=== PATIENT | female | born 1955 | race African-American/Black ===

== ENCOUNTER 2016-08-22 07:03 | Day surgery (SDC) | payer OTHER ==
[2016-08-16 11:36] VITALS: BMI 25.1
--- NOTE | 2016-08-16 15:37 | HP ---
Admitting History and Physical - Primary Care Physician PCP: Shirley Paige - Admission Chief Complaint: Right breast intraductal papilloma and right breast mass at 7: 00 History of Present Illness: 59 year old postmenapausal female with right nipple clear discharge. US core bx 2012 showed intraductal papilloma right breast retroareolar region. She did not have affordable insurance at the time to excise it. Unilateral US and mammogram 06/2016 showed 2.1 cm mass 6:00. This has increased in size. In addition there is a right breast 7:[address] Monteiro is suggesting biopsy. History Source: Patient Limitations to Obtaining History: No Limitations - Past Medical History Infectious Disease: Yes: Other (Herpes) - Past Surgical History Past Surgical History: Yes: Hysterectomy (EZRA at age 41 fibroid and 2001 USO benign cyst) - Smoking History Smoking history: Never smoked Have you smoked in the past 12 months: No - Alcohol/Substance Use Hx Alcohol Use: Yes (SOCIALLY) Home Medications - Allergies Allergies/Adverse Reactions: Allergies Allergy/AdvReac Type Severity Reaction Status Date / Time No Known Drug Allergies Allergy Verified 08/16/16 11:30 - Home Medications Home Medications: Ambulatory Orders Estradiol 2 mg PO DAILY 08/16/16 Valacyclovir HCl [Valtrex -] 500 mg PO DAILY 08/16/16 Family Disease History - Family Disease History Family Disease History: CA: Father (prostate ca 60) Physical Examination Constitutional: Yes: Well Nourished, No Distress Musculoskeletal: Yes: Other (palpable right retroareolar mass at 6:00 which elicits clear nipple discharge no other palpable masses in either breast , no palpable adenopathy) Problem List - Problems (1) Intraductal papilloma of right breast Code(s): D24.1 - BENIGN NEOPLASM OF RIGHT BREAST (2) Mass of right breast Code(s): N63 - UNSPECIFIED LUMP IN BREAST Assessment/Plan Right breast excisional biopsy of retroareolar mass and right breast 7:00 mass excision with an US needle localization
[2016-08-22] MEDS ORDERED: KETOROLAC TROMETHAMINE 30 MG/1 ML VIAL IVPUSH PRN (11:49)
[2016-08-22] MEDS ORDERED: ONDANSETRON 4 MG/2 ML VIAL IVPB PRN (11:49)
[2016-08-22] MEDS ORDERED: DEXTROSE 5%-0.45% SALINE 1,000 ML IV SCH (12:00)
[2016-08-22] MEDS ORDERED: MIDAZOLAM HCL 2 MG/2 ML SINGLE DOSE VIAL ONE (12:00)
[2016-08-22] MEDS ORDERED: LIDOCAINE HCL 1%, 10 MG/ML (20ML VIAL) ONE (12:01)
[2016-08-22] MEDS ORDERED: BUPIVACAINE HCL 0.25% 125 MG/50 ML VIAL ONE (12:01)
[2016-08-22] MEDS ORDERED: ISOSULFAN BLUE 10 MG/ML VIAL SQ ONE (12:01)
[2016-08-22] MEDS ORDERED: PROPOFOL 20 ML ONE ×2 (12:09)
[2016-08-22] MEDS ORDERED: GUM MASTIC/STORAX/MSAL/ALCOHOL 1 DRP DROPSBTL MC ONE (12:25)
[2016-08-22 14:38] VITALS: TEMP 97.9
[2016-08-22 15:12] VITALS: BP 126/66; PULSE 64
[2016-08-22] MEDS ORDERED: ONDANSETRON 4 MG/2 ML VIAL IVPUSH PRN (15:24)
[2016-08-22] MEDS ORDERED: LACTATED RINGERS SOLUTION 1,000 ML IV SCH (15:30)
--- NOTE | 2016-08-23 15:31 | OP ---
DATE OF OPERATION: 08/22/2016 PREOPERATIVE DIAGNOSIS: Right breast mass. POSTOPERATIVE DIAGNOSIS: Right breast mass. PROCEDURE: Excision of right breast mass x2. SURGEON: Shirley Paige MD WOOD MODEL BUILDER: NICKO Soni ANESTHESIA: MAC. SPECIMEN: Right breast mass. ESTIMATED BLOOD LOSS: Minimal. INDICATIONS FOR PROCEDURE: The patient is a 60-year-old woman who has had right clear nipple discharge since 2012. Biopsy in 2012 showed an intraductal papilloma. Excision was recommended, but the patient was uninsured until recently. Ultrasound in June showed a 2.1-cm subareolar mass at 6 o'clock, which had increased in size compared to previous studies. There was also a small benign-appearing mass, and the plan was to take this out at the same time as the papilloma. The procedure, risks, and complications were discussed with her prior to surgery. DESCRIPTION OF PROCEDURE: The patient was taken to breast imaging where she underwent localization of the right breast mass at 7 o'clock. The mass at 6 o'clock was palpable. She was then taken to ambulatory surgery where informed consent was obtained. The right breast was marked for laterality. She was then taken to the operating room and placed on the operating table in the supine position. She was sedated. Sequential compression devices were placed on both legs. She did not receive antibiotics prior to surgery. Examination of the right breast showed a palpable mass just below the nipple at 6 o'clock. There was also a guidewire exiting from the right lower inner quadrant. The right breast was prepped and draped in the usual fashion. The skin was infiltrated with 1% lidocaine after a time-out was performed. An incision was made at the inferior border of the areola. The tip of the localizing guidewire was identified. Electrocautery was used to mobilize the tissue under the areola until the subareolar mass was identified. The mass was then mobilized and from the surrounding breast tissue. There was some bleeding, which was controlled with electrocautery. The tissue dissection than extended to include the tissue around the tip of the needle where the 7 o'clock mass was located. Once the tissue was completely mobilized, the wire and needle were disassembled, and the wire was brought into the operative field. A small amount of remaining tissue was divided with electrocautery. The specimen was then sent to ultrasound, which showed the 7 o'clock mass was included in the specimen. Specimen was then placed in formalin and sent to Pathology. The wound was irrigated and inspected for hemostasis. Once hemostasis was satisfactory, the incision was closed. The skin was infiltrated with 0.25% Marcaine. The deep tissue was closed with interrupted sutures of 3-0 Vicryl. The dermis was closed with interrupted sutures of 3-0 Vicryl. The skin was closed with a running subcuticular closure of 4-0 Monocryl. The wound was cleaned and dressed with a sterile gauze dressing. The patient tolerated the procedure well. At the end of the procedure, all sponge, lap, and instrument counts were correct. She was taken to the recovery area in satisfactory condition. Jorge [id number]
--- NOTE | 2016-08-26 11:43 | PATH ---
Surgical Pathology Report Patient Name: ERIC BRUNNER [facility]. Rec. #: [id number] /Age/Gender: 1955 (Age: 60) / F Account: [id number] Location: [facility] Taken: 08/22/2016 Received: 08/21/2016 Reported: 08/26/2016 Physicians: Shirley Paige M.D. Specimen(s) Received RIGHT BREAST MASS Clinical History None given Final Diagnosis RIGHT BREAST, WIDE EXCISION: INTRADUCTAL PAPILLOMA WITH ATYPIA, 1.0 CM IN GREATEST DIMENSION MEASURED ON A SLIDE, WITH AREAS OF CYSTIC CHANGE AND AREAS OF APOCRINE METAPLASIA. PAPILLOMA EXTENDS TO SUPERIOR AND LATERAL MARGINS OF EXCISION. REMAINING BREAST TISSUE WITH SCLEROSING ADENOSIS WITH ASSOCIATED CALCIFICATION, ARISING IN A BACKGROUND OF FIBROCYSTIC CHANGES INCLUDING USUAL DUCTAL HYPERPLASIA (UDH), STROMAL FIBROSIS, DUCTAL DILATATION, AND CYSTIC APOCRINE METAPLASIA. CYST FORMATION WITH AREAS OF REACTION TO CYST RUPTURE PRESENT. Comment: Recommend correlation with clinical and radiologic findings and follow up as clinically indicated. Also see prior slide review [id number]. Electronically Signed Johnny Britt M.D. Gross Description Received in formalin, labeled "right breast mass x2,"," is a 4.0 x 3.4 x 1.3 cm. crowley-yellow, irregular, portion of fibroadipose tissue. There is a short suture marking the superior aspect and a long suture marking the lateral aspect, per the surgeon. There is no skin or nipple present. The specimen is inked as follows: superior and lateral blue; inferior green; medial yellow; anterior red; deep black. The specimen is serially sectioned from superior to inferior. Sectioning reveals a possible previous biopsy cavity abutting the lateral margin. The cavity is surrounded by focally firm fibrous tissue. No definitive masses are identified. The specimen is entirely and sequentially submitted in 9 cassettes with the superior margin in cassette 1 and the inferior margin in cassette 9. Time to formalin fixation: 28 minutes Total formalin fixation time: Approximately 29 hours. 08/23/2016 [facility]08/23/2016
== END 2016-08-22 15:15 | disposition home or self-care (01) ==
LOC: FASU 07:03
PROVIDERS: ATTEND Surgery
PROC: 0HBT0ZX Excision of Right Breast, Open Approach, Diagnostic (ICD-10-PCS; principal; 2016-08-22 11:00)
DX: N63 Unspecified lump in breast (principal); D24.1 Benign neoplasm of right breast
CPT/HCPCS: 19281; 76098-TC; 88307-TC; 94760